=== PATIENT | female | born 1945 | race Two or more races ===

== ENCOUNTER 2021-01-20 09:32 | Outpatient (CLI) | payer OTHER | END 2021-01-20 09:43 | disposition home or self-care (01) | LOC: NUCLEAR 09:32 → EDSEX 09:32 → NUCLEAR 09:43 | PROVIDERS: ATTEND Internal Medicine Gastroenterology | DX: R97.0 Elevated carcinoembryonic antigen [CEA] (principal) | CPT/HCPCS: 78815; A9552 ==

== ENCOUNTER 2021-02-02 09:45 | Inpatient (IN) | payer OTHER ==
[~2021-02-02] VITALS: Ht 165.1 cm; Wt 81.6 kg
[2021-02-02] MEDS ORDERED: COZAAR50 MG PO (12:48)
[2021-02-02] MEDS ORDERED: ZOCOR20 MG PO (12:49)
[2021-02-02] MEDS ORDERED: HYDROCHLOROTH12.5 MG PO (12:49)
[2021-02-02] MEDS ORDERED: TAMS0.4C PO (12:49)
[2021-02-02] MEDS ORDERED: NORVASC5 MG PO (12:49)
[2021-02-04] MEDS ORDERED: BACTRIM DS TAB1 EACH (08:13)
[2021-02-04] MEDS ORDERED: METRONIDAZOLE500 MG (08:13)
[2021-02-07] MEDS ORDERED: ULTRACET PO (15:02)
[2021-02-07] MEDS ORDERED: INTESTINEX680 M1 PO (15:03)
== END 2021-02-07 16:35 | disposition home or self-care (01) | DRG 331 ==
LOC: SURH 02-03 08:35 → EDSEX 02-03 08:35 → O/R 02-03 08:35 → SURH 02-03 09:45
PROVIDERS: ADMIT Surgery; ATTEND Surgery
PROC: 0DTP4ZZ Resection of Rectum, Percutaneous Endoscopic Approach (ICD-10-PCS; 2021-02-03)
PROC: 07BC4ZX Excision of Pelvis Lymphatic, Percutaneous Endoscopic Approach, Diagnostic (ICD-10-PCS; 2021-02-03)
PROC: 3E0F7SF Introduction of Other Gas into Respiratory Tract, Via Natural or Artificial Opening (ICD-10-PCS; 2021-02-03)
PROC: 0DBN4ZZ Excision of Sigmoid Colon, Percutaneous Endoscopic Approach (ICD-10-PCS; principal; 2021-02-03 10:00)
DX: C19 Malignant neoplasm of rectosigmoid junction (principal); I13.10 Hypertensive heart and chronic kidney disease without heart failure, with stage 1 through stage 4 chronic kidney disease, or unspecified chronic kidney disease; N18.2 Chronic kidney disease, stage 2 (mild); R33.8 Other retention of urine; Z20.822 Contact with and (suspected) exposure to COVID-19

== ENCOUNTER → 2022-02-23 | Outpatient (CLI) | payer OTHER ==
[~2022-02-23] MED LIST: BACTRIM DS TAB1 EACH; COZAAR50 MG PO; HYDROCHLOROTH12.5 MG PO; INTESTINEX680 M1 PO; METRONIDAZOLE500 MG; NORVASC5 MG PO; TAMS0.4C PO; ULTRACET PO; ZOCOR20 MG PO
== END | disposition home or self-care (01) ==
LOC: NUCLEAR 07:00
PROVIDERS: ATTEND Surgery
DX: C18.7 Malignant neoplasm of sigmoid colon (principal); R19.4 Change in bowel habit; R19.5 Other fecal abnormalities; R59.0 Localized enlarged lymph nodes; R97.0 Elevated carcinoembryonic antigen [CEA]
CPT/HCPCS: 78816; A9552

== ENCOUNTER 2022-07-20 05:30 | Day surgery (SDC) | payer OTHER ==
[2022-07-20] MEDS ORDERED: RECTICARE30 GM TOP (08:20)
[2022-07-20] MEDS ORDERED: PERCOCET 5-3251 EACH PO (08:20)
== END 2022-07-20 13:10 | disposition home or self-care (01) ==
LOC: CIR.AMB 05:30
PROVIDERS: ATTEND Surgery
DX: K60.3 Anal fistula (principal); R19.5 Other fecal abnormalities; R59.0 Localized enlarged lymph nodes; Z20.822 Contact with and (suspected) exposure to COVID-19